=== PATIENT | female | born 1985 | race Caucasian/White ===

== ENCOUNTER 2017-09-07 16:05 | Emergency (ER) | payer SELFPAY ==
[~2017-09-07] VITALS: Wt 63.5 kg
[~2017-09-07 16:05] MED LIST: BROMOCRIPTINE2.5 M1 PO; MOTRIN800 MG PO
[2017-09-07] MEDS ORDERED: TRAMADOL HCL50 MG PO (17:26)
== END 2017-09-07 17:37 | disposition home or self-care (01) ==
LOC: ED 16:05
DX: S92.532A Displaced fracture of distal phalanx of left lesser toe(s), initial encounter for closed fracture (principal); W18.2XXA Fall in (into) shower or empty bathtub, initial encounter; Y93.89 Activity, other specified; Y92.89 Other specified places as the place of occurrence of the external cause; Y99.8 Other external cause status

== ENCOUNTER 2022-09-15 17:27 | Emergency (ER) | payer BC ==
[~2022-09-15] VITALS: Wt 68.0 kg
[~2022-09-15 17:27] MED LIST changes: +TRAMADOL HCL50 MG PO
[2022-09-15] MEDS ORDERED: METHOCARBAMOL500 M1 PO (21:07)
[2022-09-15] MEDS ORDERED: NAPROXEN250 MG PO (21:07)
== END 2022-09-15 21:23 | disposition home or self-care (01) ==
LOC: ED 17:27
DX: S29.011A Strain of muscle and tendon of front wall of thorax, initial encounter (principal); Z98.890 Other specified postprocedural states; X58.XXXA Exposure to other specified factors, initial encounter; Y93.89 Activity, other specified; Y92.89 Other specified places as the place of occurrence of the external cause; Y99.8 Other external cause status

== ENCOUNTER 2024-02-13 13:29 | Emergency (ER) | payer BC ==
[~2024-02-13] VITALS: Ht 157.4 cm; Wt 77.1 kg
[~2024-02-13 13:29] MED LIST changes: +METHOCARBAMOL500 M1 PO; +NAPROXEN250 MG PO
[2024-02-13] MEDS ORDERED: Motrin,Rufen800 MG PO (18:13)
== END 2024-02-13 18:46 | disposition home or self-care (01) ==
LOC: ED 13:29
DX: S82.832A Other fracture of upper and lower end of left fibula, initial encounter for closed fracture (principal); S92.001A Unspecified fracture of right calcaneus, initial encounter for closed fracture; Z53.29 Procedure and treatment not carried out because of patient's decision for other reasons; Z98.890 Other specified postprocedural states; W01.0XXA Fall on same level from slipping, tripping and stumbling without subsequent striking against object, initial encounter; Y93.89 Activity, other specified; Y92.89 Other specified places as the place of occurrence of the external cause; Y99.8 Other external cause status

== ENCOUNTER → 2024-02-23 | Outpatient (CLI) | payer BC ==
[~2024-02-23] MED LIST changes: +Motrin,Rufen800 MG PO
== END | disposition home or self-care (01) ==
LOC: ORTHO 01:08
PROVIDERS: ATTEND Orthopaedic Surgery
DX: S82.65XD Nondisplaced fracture of lateral malleolus of left fibula, subsequent encounter for closed fracture with routine healing (principal); X58.XXXD Exposure to other specified factors, subsequent encounter

== ENCOUNTER → 2024-03-08 | Outpatient (CLI) | payer BC | END | disposition home or self-care (01) | LOC: ORTHO 02:18 | PROVIDERS: ATTEND Orthopaedic Surgery | DX: S82.65XD Nondisplaced fracture of lateral malleolus of left fibula, subsequent encounter for closed fracture with routine healing (principal); X58.XXXD Exposure to other specified factors, subsequent encounter ==

== ENCOUNTER → 2024-03-22 | Outpatient (CLI) | payer BC | END | disposition home or self-care (01) | LOC: ORTHO 02:12 | PROVIDERS: ATTEND Orthopaedic Surgery | DX: S82.65XD Nondisplaced fracture of lateral malleolus of left fibula, subsequent encounter for closed fracture with routine healing (principal); X58.XXXD Exposure to other specified factors, subsequent encounter ==